=== PATIENT | female | born 1965 | race Caucasian/White ===

== ENCOUNTER 2017-09-02 05:53 | Day surgery (SDC) | payer BC ==
[2017-09-02] MEDS ORDERED: PROPOFOL 40 ML (07:45)
[2017-09-02] MEDS ORDERED: MIDAZOLAM 1 MG/ML 2 ML INJ (07:45)
[2017-09-02] MEDS ORDERED: LIDOCAINE 2% (SDV) 5 ML INJ (07:45)
[2017-09-02] MEDS ORDERED: FENTAnyl 50 MCG/ML VIAL (07:45)
== END 2017-09-02 09:15 | disposition home or self-care (01) ==
LOC: GIL 05:53
DX: K64.8 Other hemorrhoids (principal)
CPT/HCPCS: 45378